=== PATIENT | female | born 1970 | race Two or more races ===

== ENCOUNTER 2024-08-28 17:48 | Emergency (ER) | payer MEDICAID, SELFPAY ==
[2024-08-28 18:23] VITALS: BP 229/135; PULSE 87; RESP 16; TEMP 37.3; O2SAT 99; BMI 25.4
--- NOTE | 2024-08-28 18:24 | EDNOTE_ITS ---
Upper Extremity Injury RME/HPI General Chief Complaint: Hand/Wrist Problems Stated Complaint: LEFT WRIST FRACTURE; NEED SPLINT Time Seen by Provider: 08/28/24 18:14 Source: patient, RN notes reviewed and old records reviewed Arrival date/time: 08/28/24 17: Mode of arrival: ambulatory Limitations: no limitations RME / HPI RME / HPI narrative: 53yof presents to ED for splint placement. Patient s/p trip and fall 3 days ago landing on outstretched left hand. Patient had outside x-rays completed today, CD and report with patient showing transverse intra-articular radius fracture and ulnar styloid fracture. No deformity or numbness/tingling reported. No medications or treatment since symptom onset. Related Data Previous Rx's ?Medication ?Instructions ?Recorded acetaminophen 500 mg tablet 1,000 mg (2 x 500 mg) PO Q6H PRN 08/28/24 (Tylenol Extra Strength) pain #60 tabs ibuprofen 600 mg tablet 600 mg PO Q6H PRN pain #30 tabs 08/28/24 Allergies Allergy/AdvReac Type Severity Reaction Status Date / Time No Known Allergies Allergy Verified 08/28/24 17:49 Review of Systems Review of Systems Systems Reviewed: All systems reviewed, normal except as documented Musculoskeletal Musculoskeletal: Reports arthralgias, Reports joint swelling, Denies numbness and Denies tingling Neurologic Neurologic: Denies numbness and Denies tingling Past Medical History Past Medical History CARDIAC: Positive Hypertension Surgical History OTHER SURGICAL HX: Denies past surgical history Social History SMOKING STATUS: Never smoker SUBSTANCE USE: does not use ALCOHOL: Never ED Exam General Limitations: Present no limitations General appearance: Present alert and in no apparent distress Head Head exam: Present atraumatic and normocephalic Eye Eye exam: Present normal appearance, PERRL and EOMI ENT ENT exam: Present normal exam and mucous membranes moist Neck Neck exam: Present normal inspection and full ROM Chest Chest inspection: Present normal inspection and symmetric chest wall rise Respiratory Respiratory exam: Present normal lung sounds bilaterally; Absent respiratory distress Cardiovascular Cardiovascular exam: Present regular rate and normal rhythm Extremities Exam Extremities exam: Present other (Tenderness and mild swelling to left wrist. Limited ROM 2/2 pain. Able to wiggle all fingers. 2+ radial pulses, sensation intact) Neurological Exam Neurological exam: Present alert and oriented X3 Psychiatric Psychiatric exam: Present normal affect and normal mood Skin Skin exam: Present warm, dry, intact and normal color Course Quality Measures none Orders Category Date Time Status Splint / Immobilizer STAT Care 08/28/24 18:26 Completed Ibuprofen Tab [Motrin Tab] Med 08/28/24 18:56 Discontinued 600 mg PO X1 ONE cloNIDine HCL [Catapres] Med 08/28/24 18:28 Discontinued 0.2 mg PO X1 ONE Vital Signs Vital signs: Vital Signs Temperature 99.1 F 08/28/24 18:23 Pulse Rate 87 08/28/24 18:23 Respiratory Rate 16 08/28/24 18:23 Blood Pressure 229/135 H 08/28/24 18:23 Pulse Oximetry (%) 99 08/28/24 18:23 Oxygen Delivery Method Room Air 08/28/24 18:23 Procedures -ED Splint Fabrication: Clinician Made Type: Sugar Tong Reason for Splint: Improve Function, Optimal Positioning, Pain Management, Prevent Deformities and Support Joint/Muscle Circulation Distal to Splint: Yes Movement Distal to Splint: Yes Senation Distal to Splint: Yes Tolerance: Tolerates Well Extremity Injury MDM Narrative MDM Narrative:: 53yof presents to ED for splint placement. Patient s/p trip and fall 3 days ago landing on outstretched left hand. Patient had outside x-rays completed today, CD and report with patient showing transverse intra-articular radius fracture and ulnar styloid fracture. No deformity or numbness/tingling reported. No medications or treatment since symptom onset. Patient is neurovascularly intact, compartments soft. Encouraged RICE therapy, Motrin/Tylenol prn pain. Ortho referral given for follow-up and further management. Stable for discharge, RTED precautions given Patient data External records reviewed:: None (No prior visits) Clinical information provided by:: patient and friend Social determinants that could affect healthcare access:: other (specify) (Poor access to healthcare, acculturation difficulty, lack of insurance) Patient has the following chronic illnesses:: Hypertension How is presenting disease/condition affected by chronic disease/condition?: exacerbated by Evaluation data The following diagnostics were reviewed and interpreted by me:: other (specify) (None) Lab and/or radiology exams considered but not ordered:: Wrist x-rays: Reviewed prior imaging report Interpretation Summary: Wrist x-rays: Distal radius fracture and ulnar styloid fracture per my read Medications / Prescriptions Medications or Prescriptions considered but not ordered:: None Medication administrations:: Medication Administration History Discontinued Medications Clonidine (Clonidine Hcl 0.1 Mg Tablet) 0.2 mg PO X1 ONE Stop: 08/28/24 18:29 Last Admin: 08/28/24 18:40 Dose: 0.2 mg Documented By: OA Ibuprofen (Ibuprofen Tab 600 Mg Tablet) 600 mg PO X1 ONE Stop: 08/28/24 18:57 Last Admin: 08/28/24 20:10 Dose: 600 mg Documented By: SAKSHI Above medication administered in ED Consultations Consultation(s) initiated? (list below): No Diagnosis Upper Extremity Injury Differential Diagnosis: other (Fracture, dislocation, sprain, strain, contusion, MSK pain) Most likely diagnosis given after review of the tests above:: Left wrist fracture Admission Indicated Admission indicated?: not indicated Admission Request Was there a request for admission?: No Disposition Plan Disposition Plan: Discharge Discharge Attestation Discharge Attestation: The patient and all family members were given an opportunity to ask questions and understood the discharge instructions. Discharge instructions specifically effects, indications for sooner follow up or return to the emergency department, and the expected course of current diagnosis. Patient condition: Stable Discharge Plan Plan Patient Disposition: HOME (Self Care) Patient condition on transfer: Stable Prescriptions/Referrals Prescriptions/Med Rec: New ibuprofen 600 mg tablet 600 mg PO Q6H PRN (Reason: pain) Qty: 30 0RF acetaminophen [Tylenol Extra Strength] 500 mg tablet 1,000 mg PO Q6H PRN (Reason: pain) Qty: 60 0RF Referrals: Lulu Zhao NP [Primary Care Provider] - In 1 week Chidi Powers MD [Physician] - In 1 week (Call to schedule an appointment for a visit.) Problem List Clinical Impression: Distal radius fracture, left, Fracture of ulnar styloid Patient/Caregiver Discharge Instructions Education Materials: Wrist Fracture Additional Instructions: Please follow-up with your primary care physician for high blood pressure medication management. Print Language: [place]ian Stand Alone Forms: Ksenia Award Info., Patient Portal Info Letter PA/MEASUREMENT AND SENSING TECHNICIAN Supervising Physician PA/MEASUREMENT AND SENSING TECHNICIAN Supervising Physician: Christiano
[2024-08-28 18:40] VITALS: BP 229/135; PULSE 87
[2024-08-28] MEDS: cloNIDine HCL 0.1 MG TABLET 0.2 MG PO (18:40)
[2024-08-28] MEDS: IBUPROFEN TAB 600 MG TABLET PO (20:10)
[2024-08-28 20:12] VITALS: BP 103/67; PULSE 76
== END 2024-08-28 21:58 | disposition home or self-care (01) ==
PROVIDERS: Emergency Provider Emergency Medicine; PCP Nurse Practitioner Family
DX: S52.572A Other intraarticular fracture of lower end of left radius, initial encounter for closed fracture (principal); I10 Essential (primary) hypertension; W01.0XXA Fall on same level from slipping, tripping and stumbling without subsequent striking against object, initial encounter
CPT/HCPCS: 29126; 99283; A9270

== ENCOUNTER → 2024-10-21 | Outpatient (CLI) | payer MEDICAID, SELFPAY ==
--- NOTE | 2024-10-21 11:00 | XR_ITS ---
Examination: Screening digital mammography, bilateral Computer aided detection 3-D breast Tomosynthesis, bilateral Date and time of exam: October 21, 2024 1032 hours No priors Indication: Screening Technique: Nonmagnified MLO, CC views of the breasts to been obtained, reconstructed from 3-D Tomosynthesis images. R2 computer aided detection program utilized for evaluation of suspicious masses and/or abnormal calcifications. 3-D Tomosynthesis images obtained. Findings: The breasts are heterogeneously dense, which may obscure small masses Scattered calcifications. No suspicious masses Impression: BI-RADS category II: Benign Findings. Recommend 1 year follow-up mammogram.
== END | disposition home or self-care (01) ==
PROVIDERS: Referring Provider Nurse Practitioner Family; Visit Provider Nurse Practitioner Family
DX: Z12.31 Encounter for screening mammogram for malignant neoplasm of breast (principal); R92.323 Mammographic fibroglandular density, bilateral breasts; R92.1 Mammographic calcification found on diagnostic imaging of breast
CPT/HCPCS: 77063; 77067